=== PATIENT | female | born 1960 | race Caucasian/White ===

== ENCOUNTER 2017-11-14 10:46 | Day surgery (SDC) | payer OTHER ==
[2017-11-14] MEDS ORDERED: Acetaminophen 500 MG TAB PO SCH (11:00)
[2017-11-14] MEDS ORDERED: diphenhydrAMINE 25 MG CAP PO SCH (11:00)
[2017-11-14] MEDS ORDERED: Sodium Chloride 0.9% 30 ML ONE (13:49)
[2017-11-14 16:39] VITALS: BP 107/62; TEMP 98.3
[2017-11-14 17:26] LABS: Band 2 % (5-11); Hemoglobin 9.4 g/dL (12.0-16.0); Lymphocytes 66 % (21-51); MDiff Complete? YES; Mean Corpuscular HGB CONC 34.3 g/dL (32.0-36.0); Mean Corpuscular Hemoglobin 35.1 pg (27.0-31.0); Mean Platelet Volume 9.1 fL (7.4-10.4); Monocytes 4 % (0-10); Neutrophil 28 % (42-75); PLT Morphology Comment Appears Decreased; Platelet Count 38 thou/uL (130-400); RBC Distribution Width 13.6 % (11.5-14.5); Red Blood Cell (RBC) Count 2.66 mill/uL (4.20-5.40); Tear Drops SLIGHT = 2-5 cells (100X) (0-1/hpf); White Blood Cell (WBC) Count 1.1 thou/uL (4.8-10.8)
== END 2017-11-14 16:40 | disposition home or self-care (01) ==
LOC: ONC/OP 10:46
PROVIDERS: ATTEND Internal Medicine Hematology & Oncology
PROC: 30233R1 Transfusion of Nonautologous Platelets into Peripheral Vein, Percutaneous Approach (ICD-10-PCS; principal; 2017-11-14)
DX: D69.6 Thrombocytopenia, unspecified (principal); C91.00 Acute lymphoblastic leukemia not having achieved remission; D63.0 Anemia in neoplastic disease; Z94.84 Stem cells transplant status; Z88.5 Allergy status to narcotic agent
CPT/HCPCS: 36430; 85025; 85060; 86900; 86901; A4216; J1642; P9035

== ENCOUNTER 2017-11-21 11:34 | Day surgery (SDC) | payer OTHER ==
[2017-11-21] MEDS ORDERED: Acetaminophen 500 MG TAB PO SCH (12:30)
[2017-11-21] MEDS ORDERED: diphenhydrAMINE 25 MG CAP PO SCH (12:30)
[2017-11-21] MEDS ORDERED: Sodium Chloride 0.9% 40 ML ONE (13:08)
[2017-11-21 15:22] VITALS: BP 112/68; TEMP 98.1
== END 2017-11-21 15:23 | disposition home or self-care (01) ==
LOC: ONC/OP 11:34
PROVIDERS: ATTEND Internal Medicine Hematology & Oncology
PROC: 30233R1 Transfusion of Nonautologous Platelets into Peripheral Vein, Percutaneous Approach (ICD-10-PCS; principal; 2017-11-21)
DX: D69.6 Thrombocytopenia, unspecified (principal); D64.9 Anemia, unspecified; Z88.5 Allergy status to narcotic agent
CPT/HCPCS: 36430; 86900; 86901; A4216; J1642; P9035

== ENCOUNTER 2017-11-27 10:44 | Day surgery (SDC) | payer OTHER ==
[2017-11-27] MEDS ORDERED: Sodium Chloride 0.9% 40 ML ONE (12:04)
[2017-11-27] MEDS ORDERED: Acetaminophen 500 MG TAB PO SCH (12:15)
[2017-11-27] MEDS ORDERED: diphenhydrAMINE 25 MG CAP PO SCH (12:15)
[2017-11-27 17:13] VITALS: BP 138/83; TEMP 98
[2017-11-27 17:31] LABS: Hemoglobin 10.6 g/dL (12.0-16.0); Mean Corpuscular HGB CONC 35.2 g/dL (32.0-36.0); Mean Corpuscular Hemoglobin 34.2 pg (27.0-31.0); Mean Corpuscular Volume 97.4 fl (81.0-99.0); Mean Platelet Volume 7.8 fL (7.4-10.4); Platelet Count 42 thou/uL (130-400); RBC Distribution Width 15.6 % (11.5-14.5); White Blood Cell (WBC) Count 0.8 thou/uL (4.8-10.8)
[2017-11-27 18:29] LABS: Anisocytosis SLIGHT = 6-15 cells (100X) (0-5/hpf); Lymphocytes 98 % (21-51); MDiff Complete? YES; Neutrophil 2 % (42-75); PLT Morphology Comment Appears Decreased
== END 2017-11-27 17:13 | disposition home or self-care (01) ==
LOC: ONC/OP 10:44
PROVIDERS: ATTEND Internal Medicine Hematology & Oncology
PROC: 30233R1 Transfusion of Nonautologous Platelets into Peripheral Vein, Percutaneous Approach (ICD-10-PCS; principal; 2017-11-27)
PROC: 30233N1 Transfusion of Nonautologous Red Blood Cells into Peripheral Vein, Percutaneous Approach (ICD-10-PCS; principal; 2017-11-27)
DX: D64.9 Anemia, unspecified (principal); D69.6 Thrombocytopenia, unspecified; Z88.5 Allergy status to narcotic agent; Z88.8 Allergy status to other drugs, medicaments and biological substances
CPT/HCPCS: 36430; 85025; 86850; 86900; 86901; A4216; J1642; P9016; P9035

== ENCOUNTER 2017-12-14 09:39 | Day surgery (SDC) | payer OTHER ==
[2017-12-14] MEDS ORDERED: Acetaminophen 500 MG TAB PO SCH (10:30)
[2017-12-14] MEDS ORDERED: diphenhydrAMINE 25 MG CAP PO SCH (10:30)
[2017-12-14 11:40] VITALS: BP 110/57; TEMP 99.1
== END 2017-12-14 11:40 | disposition home or self-care (01) ==
LOC: ONC/OP 09:39
PROVIDERS: ATTEND Internal Medicine Hematology & Oncology
PROC: 30233R1 Transfusion of Nonautologous Platelets into Peripheral Vein, Percutaneous Approach (ICD-10-PCS; principal; 2017-12-14)
DX: D64.9 Anemia, unspecified (principal); D69.6 Thrombocytopenia, unspecified; Z79.2 Long term (current) use of antibiotics; Z79.899 Other long term (current) drug therapy; Z88.5 Allergy status to narcotic agent
CPT/HCPCS: 36430; 86900; 86901; P9035

== ENCOUNTER 2017-12-18 10:11 | Day surgery (SDC) | payer OTHER ==
[2017-12-18] MEDS ORDERED: diphenhydrAMINE 25 MG CAP PO SCH (10:30)
[2017-12-18] MEDS ORDERED: Acetaminophen 500 MG TAB PO SCH (10:30)
[2017-12-18] MEDS ORDERED: Sodium Chloride 0.9% 30 ML ONE (10:49)
[2017-12-18 13:05] LABS: Anisocytosis SLIGHT = 6-15 cells (100X) (0-5/hpf); Eosinophils 1 % (0-10); Lymphocytes 92 % (21-51); MDiff Complete? YES; Mean Corpuscular HGB CONC 34.9 g/dL (32.0-36.0); Mean Corpuscular Hemoglobin 32.6 pg (27.0-31.0); Mean Corpuscular Volume 93.4 fl (81.0-99.0); Mean Platelet Volume 7.7 fL (7.4-10.4); Monocytes 1 % (0-10); Neutrophil 5 % (42-75); PLT Morphology Comment Appears Decreased; Platelet Count 41 thou/uL (130-400); RBC Distribution Width 15.4 % (11.5-14.5); Reactive Lymphocytes 1 % (0-10); Red Blood Cell (RBC) Count 2.76 mill/uL (4.20-5.40); White Blood Cell (WBC) Count 6.1 thou/uL (4.8-10.8)
[2017-12-18 14:36] VITALS: BP 111/65; TEMP 99.1
== END 2017-12-18 16:50 | disposition home or self-care (01) ==
LOC: ONC/OP 10:11
PROVIDERS: ATTEND Internal Medicine Medical Oncology
PROC: 30233R1 Transfusion of Nonautologous Platelets into Peripheral Vein, Percutaneous Approach (ICD-10-PCS; principal; 2017-12-18)
DX: D64.9 Anemia, unspecified (principal); D69.6 Thrombocytopenia, unspecified; Z79.2 Long term (current) use of antibiotics; Z79.899 Other long term (current) drug therapy; Z88.5 Allergy status to narcotic agent
CPT/HCPCS: 36430; 85025; 86900; 86901; A4216; J1642; P9035

== ENCOUNTER 2017-12-22 10:53 | Day surgery (SDC) | payer OTHER ==
[2017-12-22] MEDS ORDERED: diphenhydrAMINE 25 MG CAP PO SCH (11:30)
[2017-12-22] MEDS ORDERED: Acetaminophen 500 MG TAB PO SCH (11:30)
[2017-12-22] MEDS ORDERED: Sodium Chloride 0.9% 20 ML ONE (11:52)
[2017-12-22 13:31] VITALS: TEMP 99.6
[2017-12-22 13:42] VITALS: BP 105/69
== END 2017-12-22 13:43 | disposition home or self-care (01) ==
LOC: ONC/OP 10:53
PROVIDERS: ATTEND Internal Medicine Hematology & Oncology
PROC: 30233R1 Transfusion of Nonautologous Platelets into Peripheral Vein, Percutaneous Approach (ICD-10-PCS; principal; 2017-12-22)
DX: D64.9 Anemia, unspecified (principal); D69.6 Thrombocytopenia, unspecified; Z88.5 Allergy status to narcotic agent; Z98.890 Other specified postprocedural states
CPT/HCPCS: 36430; 86900; 86901; A4216; J1642; P9035